=== PATIENT | female | born 1955 | race Caucasian/White ===

== ENCOUNTER 2021-10-16 10:23 | Inpatient (IN) | payer MEDICARE, BC, SELFPAY ==
[2021-10-16] VITALS (10 sets, daily range): BP systolic 130–144; BP diastolic 41–55; PULSE 53–68; RESP 16–20; TEMP 36.4–37.1; O2SAT 96–99; BMI 40.0
--- NOTE | ~2021-10-16 | NM_ITS ---
EXAMINATION: NM pulmonary perfusion DATE: 10/16/2021 14:17 INDICATION: Shortness of breath. TECHNIQUE: 5.5 mCi Tc-99m MAA was administered intravenously for perfusion images. Scintigraphic radha ges of the chest were obtained. COMPARISON: Chest single view 10/16/2021 FINDINGS: Perfusion images show matched moderate sized defects in right lower lobe. There is a matched large de fect in anterior segment right upper lobe. IMPRESSION: 1. Nondiagnostic (intermediate probability for pulmonary embolism). Reviewed, dictated and finalized at location A.
--- NOTE | 2021-10-16 10:38 | ADMGEN ---
This patient, Liliana Mccartney, was admitted to IMU Room 210-01 on 10/16/21 at 1023. Patient/family oriented to hospital policies and general routines including ID bracelet, bed and alarms, visiting hours, pain management, procedures, bathroom and other care routines, personal items, smoking policy, room service/diet, and visiting hours. Information on how to activate the Rapid Response Team has been discussed. Patient/Family are encouraged to report perceived risks to care and to ask questions if they do not understand what they are told or what they should do.
--- NOTE | 2021-10-16 10:39 | ECG_ITS ---
Measurements Intervals [place] Rate: 51 P: 24 NM: 181 QRS: 24 QRSD: 94 T: 45 QT: 526 QTc: 489 Interpretive Statements SINUS BRADYCARDIA PROLONGED QT INTERVAL BORDERLINE ECG NO PREVIOUS ECG AVAILABLE FOR COMPARISON Electronically Signed On 10-16-2021 16:09:33 CDT by Roger Gonzalez M.D.
--- NOTE | 2021-10-16 10:41 | PM.IMHP ---
H&P: HPI History of Present Illness Date/Time: 10/16/21 10:41 Chief Complaint: Shortness of breath Narrative: Patient is 60 for a female who presents to the ED with shortness of breath that started all of sudden last night that woke her up from the sleep. She was also feeling chilly and shivering. She could not catch her breath and hence she drove to the ER for evaluation. She was found to be hypoxic in the ER and was placed on oxygen which measure better. She also got some breathing treatment. She denied any chest pain but she did complain of having some nausea last evening. She Is already feeling better. No abdominal pain or vomiting. Initial troponin was mildly elevated but the repeat 1 went up and hence transfer was requested. Past medical history: mild coronary artery disease catheterization in May 2020 in [place]. History of carotid endarterectomy 2016 Atrial fibrillation on chronic anticoagulation History of ablation for atrial fibrillation Chronic kidney disease stage 3 Type 2 diabetes mellitus is to be on insulin now off since the surgery Past surgical history: Gastric sleeve surgery June 2021 Carotid endarterectomy left 2017 cardiac catheterization Right rotator cuff surgery, Ablation, Achilles tendons surgery Social history: Former smoker quit 8 years ago, no alcohol, no illicit drug use Family history: No family history of premature coronary artery disease Review of Systems Review of Systems: - CONSTITUTIONAL: Denies weight loss, fever and chills. - HEENT: Denies changes in vision and hearing - RESPIRATORY: Reports SOB and cough. - CV: Denies palpitations and CP. Reports left scapular pain - GI: Denies abdominal pain, reports some nausea last evening, no vomiting and diarrhea. - : Denies dysuria and urinary frequency. - MSK: Denies myalgia and joint pain. - SKIN: Denies rash and pruritus. - NEUROLOGICAL: Denies headache and syncope. - PSYCHIATRIC: Denies recent changes in mood. Denies anxiety and depression. [facility] Family History Family History Mother Hx of CABG Hypertension Carotid art occ w/o infarc AAA (abdominal aortic aneurysm) Father Hypotension Diabetes mellitus Peripheral artery disease Meds Home Medications and Allergies Home Medications Medication Instructions Recorded Confirmed Type apixaban 5 mg tablet (Eliquis) 5 mg PO Q12H 10/16/21 10/16/21 History atorvastatin 40 mg tablet 40 mg PO DAILY 10/16/21 10/16/21 History biotin 1 mg capsule 1 mg PO DAILY 10/16/21 10/16/21 History fenofibrate 160 mg tablet 160 mg PO DAILY 10/16/21 10/16/21 History ferrous sulfate 324 mg (65 mg 324 mg PO DAILY 10/16/21 10/16/21 History iron) tablet,delayed release furosemide 20 mg tablet 20 mg PO DAILY 10/16/21 10/16/21 History gabapentin 300 mg capsule 300 mg PO Q12H 10/16/21 10/16/21 History losartan 100 1 tablet PO DAILY 10/16/21 10/16/21 History mg-hydrochlorothiazide 25 mg tablet metoprolol succinate 50 mg 50 mg PO Q12H 10/16/21 10/16/21 History tablet,extended release 24 hr multivitamin with minerals 1 cap PO DAILY 10/16/21 10/16/21 History sotalol 80 mg tablet 80 mg PO Q12H 10/16/21 10/16/21 History trazodone 50 mg tablet 100 mg PO HS PRN Insomnia 10/16/21 10/16/21 History Allergies Allergy/AdvReac Type Severity Reaction Status Date / Time Penicillins Allergy Unknown Unknown Verified 10/16/21 10:57 codeine AdvReac Unknown Jittery Verified 10/16/21 10:57 [From Tylenol-Codeine #3] Contrast Media Allergy Unknown Unknown Uncoded 10/16/21 10:57 HYDROCODONE BIT AdvReac Unknown Jittery Uncoded 08/06/13 11:23 Exam Narrative: GENERAL: The patient is well developed, not in acute distress HEENT: Nonicteric sclerae, PERRLA, EOMI. Oropharynx clear. Moist mucous membranes. Conjunctivae appear well perfused. CHEST: Chest wall is nontender. HEART: Regular rate and rhythm without murmur, rubs, or gallops LUNGS: Clear to auscultation bilat
[2021-10-16 11:20] LABS: Basophils Percent Auto 0.2 % (0.2-1.2); Eosinophils Percent Auto 0.1 % (0-4.4); Hematocrit 32.7 % (37.0-47.0); Hemoglobin 10.5 g/dL (12.0-15.0); Immature Granulocyte Absolute 0.09 K/mm3 (0.00-0.031); Immature Granulocyte Percent A 0.7 % (0-0.5); Lymphocytes Percent Auto 8.2 % (18.3-44.2); Mean Corpuscular HGB Conc 32.1 g/dl (32-36); Mean Corpuscular Hemoglobin 29.7 pg (26-34); Mean Corpuscular Volume 92.4 fl (80-100); Mean Platelet Volume 10.9 fl (7.4-10.4); Monocytes Absolute Auto 0.9 K/mm3 (0.1-0.6); Monocytes Percent Auto 6.4 % (2.6-8.5); Neutrophils Absolute Auto 11.3 K/mm3 (1.3-6.7); Neutrophils Percent Auto 84.4 % (45.5-73.1); Platelet Count Result 138 k/mm3 (150-375); Red Blood Count 3.54 M/mm3 (4.2-5.4); Red Cell Distribution Width 13.1 % (11.5-14.5); White Blood Count 13.4 K/mm3 (4.5-10.0)
[2021-10-16 11:26] LABS: INR 1.2; Prothrombin Time 14.4 Seconds (11.1-14.7)
[2021-10-16 11:27] LABS: Lactic Acid Reflex 1.6 mmol/L (0.7-2.0); Magnesium 1.4 mg/dL (1.6-2.3)
[2021-10-16 11:42] LABS: Troponin I 0.167 ng/mL (0.000-0.034)
--- NOTE | 2021-10-16 11:49 | ECHO_ITS ---
Patient Info Name: Liliana Mccartney Age: 65 years : 1955 Gender: Female Ht: 64 in Wt: 233 lbs BSA: 2.24 m2 HR: 52 bpm BP: 144 / 46 mmHg Heart Rhythm: Sinus Rhythm, Bradycardia Technical Quality: Fair Exam Date: 10/16/2021 3:02 PM Exam Location: [facility] Pulmonary Patient Status: Inpatient Admit Date: 10/16/2021 Staff Ordering Physician: Roger Gonzalez MD Machine Setter Supervisor: Kaela Chris RDCS Attending Provider: Home Alvarado MD Referring Physician: Lisa CARR; Exam Type: CA echo doppler color flow Study Info Indications - elevated troponin I, sob Complete two-dimensional, color flow and Doppler transthoracic echocardiogram is performed. Summary 1. Complete two-dimensional, color flow and Doppler transthoracic echocardiogram is performed. 2. Left ventricular chamber dimension is mildly enlarged. 3. Left ventricular systolic function is normal, estimated at 65-70%. 4. There is mildly increased left ventricular wall thickness. 5. The left ventricular diastolic function is grade II diastolic dysfunction. 6. There is mild aortic valve stenosis with a peak velocity of 246 cm/s, mean gradient of 11 mmHg, and aortic valve area of 1.8 cm2. 7. There is mild mitral valve regurgitation. 8. There is trace tricuspid valve regurgitation. 9. No pulmonary hypertension, estimated pulmonary arterial systolic pressure is 29 mmHg. 10. There is mild to moderate aortic valve regurgitation. Left Ventricle Left ventricular chamber dimension is mildly enlarged. Left ventricular systolic function is normal, estimated at 65-70%. There is mildly increased left ventricular wall thickness. The left ventricular diastolic function is grade II diastolic dysfunction. Right Ventricle Right ventricular chamber dimension is normal. Right ventricular systolic function is normal. Left Atria Left atrial chamber dimension is mildly enlarged. Right Atria Right atrial chamber dimension is normal. Aortic Valve The aortic valve is not well visualized. There is mild aortic valve stenosis with a peak velocity of 246 cm/s, mean gradient of 11 mmHg, and aortic valve area of 1.8 cm2. There is mild to moderate aortic valve regurgitation. There is mild aortic valve calcification. Pulmonic Valve The pulmonic valve is not well visualized. Mitral Valve The mitral valve has normal leaflets. There is mild mitral valve regurgitation. The mitral valve annulus is mildly calcified. Tricuspid Valve The tricuspid valve leaflets are normal. There is trace tricuspid valve regurgitation. No pulmonary hypertension, estimated pulmonary arterial systolic pressure is 29 mmHg. Pericardium/Pleural The pericardium appears normal. There is no pericardial effusion. Inferior Vena Cava Normal inferior vena cava with >50% collapse upon inspiration consistent with normal right atrial pressure, 5 mmHg. Aorta The aortic root size at the sinus of Valsalva is normal. The prox ascending aorta size is normal. There is mild aortic atherosclerosis. Left Ventricular Outflow Tract Name Value Normal LVOT 2D LVOT Diameter 2.0 cm LVOT Doppler
[2021-10-16 11:57] LABS: Hemoglobin A1C 8.7 % (<5.7)
[2021-10-16 12:34] LABS: Hemoglobin A1C 8.7 % (<5.7)
[2021-10-16 12:43] LABS: Glucose Point of Care 188 mg/dl (65-105)
[2021-10-16 12:49] LABS: Alanine Aminotransferase 24 U/L (6-35); Albumin Level 3.9 g/dL (3.5-5.1); Alkaline Phosphatase 64 U/L (38-126); Anion Gap 10 mmol/L (8-16); Aspartate Amino Transferase 33 U/L (14-36); Bilirubin,Total 0.4 mg/dL (0.2-1.3); Blood Urea Nitrogen 39 mg/dL (7-17); Carbon Dioxide 28 mmol/L (22-30); Chloride 98 mmol/L (98-107); Estimated CRCL calculation 46 ml/min; Estimated Glomerular Filt Rate 41; Glucose 223 mg/dL (65-110); Potassium 4.3 mmol/L (3.4-5.0); Sodium 136 mmol/L (137-145)
[2021-10-16] MEDS: DOXYCYCLINE 100 MG/NS 100 ML 100 MG/100 ML BAG IVPB ×2 (13:28→20:41)
[2021-10-16] MEDS: FERROUS SULFATE 324 MG TABLET PO (13:41)
[2021-10-16] MEDS: FENOFIBRATE 160 MG TABLET PO (13:41)
[2021-10-16] MEDS: GABAPENTIN 300 MG CAPSULE PO ×2 (13:42→20:41)
[2021-10-16] MEDS: FUROSEMIDE 20 MG TABLET PO (13:42)
[2021-10-16] MEDS: METOPROLOL SUCCINATE EXT REL 50 MG TABCR PO ×2 (13:42→20:41)
[2021-10-16] MEDS: APIXABAN 5 MG TABLET PO ×2 (13:42→20:41)
[2021-10-16] MEDS: THERAPEUTIC MULTIVITAMINS/MINERALS TAB (*BKC) 1 TABLET PO (13:42)
[2021-10-16] MEDS: ATORVASTATIN 40 MG TABLET PO (13:42)
[2021-10-16 13:47] LABS: Troponin I 0.172 ng/mL (0.000-0.034)
[2021-10-16 14:56] LABS: Appearance Urine Clear (Clear); Bilirubin Urine 1+ (Negative); Blood Urine Negative (Negative); Color Urine Yellow (Yellow); Glucose Urine UA Trace mg/dL (Negative); Ketones Urine Negative (Negative); Leukocyte Esterase Ur Negative LEU/UL (Negative); Nitrate Urine Negative (Negative); Protein Urine 3+ mg/dL (Negative); Specific Grav Ur >= 1.030 (1.001-1.035); Urobilinogen Urine 0.2 mg/dL (<2.0); pH Urine 5.5 (5.0-9.0)
--- NOTE | 2021-10-16 15:00 | PM.CNCAR ---
Assessment and Plan Assessment and plan (1) Elevated troponin: Code(s): R77.8 - Other specified abnormalities of plasma proteins Status: Acute Assessment and Plan: Most likely type 2 infarction not secondary to acute coronary syndrome and/or plaque rupture related to acute hypoxic respiratory failure secondary to pneumonia presentation. She has no symptoms suggestive of angina or acute ischemic ECG changes. Will obtain 2D echocardiogram to document LV size/function, valve pathology, wall motion abnormalities, chamber size and pulmonary pressures. Provided no new acute changes are observed no further workup indicated at this time. (2) CAD (coronary artery disease): Code(s): I25.10 - Atherosclerotic heart disease of [place] coronary artery without angina pectoris Status: Acute Assessment and Plan: Continue supportive care for history of CAD. Continue statin, beta-caleb therapy. Patient was taken off of aspirin by her access consultant as she is on systemic anticoagulation with Eliquis. We discussed the relative risks and benefits of aspirin plus systemic anticoagulation given known/documented CAD in ultimate preference for aspirin 81 mg daily to resume unless bleeding complications otherwise noted. Given mild thrombocytopenia will hold off on addition at this time and monitor trends. (3) QT prolongation: Code(s): R94.31 - Abnormal electrocardiogram [ECG] [EKG] Status: Acute Assessment and Plan: Most likely secondary to sotalol. Noted QT prolongation with QTc of 489. Discussed reduction sotalol to 40 mg twice daily. Will hold sotalol and monitor QT interval and improved will resume a lower dose as tolerated. If bradycardia or significant or persistent may also reduce Toprol XL as appropriate although patient asymptomatic. Repeat ECG in a.m.. (4) Pneumonia: Qualifiers: Pneumonia type: due to unspecified organism Laterality: right Code(s): J18.9 - Pneumonia, unspecified organism Status: Acute Assessment and Plan: Management per primary service. Antibiotics, supportive care and O2 supplementation. Will wean O2 as tolerated. (5) Atrial fibrillation: Qualifiers: Atrial fibrillation type: paroxysmal Qualified Code(s): I48.0 - Paroxysmal atrial fibrillation Code(s): I48.91 - Unspecified atrial fibrillation Status: Acute Assessment and Plan: Maintaining sinus rhythm on sotalol and Toprol XL. Continue Eliquis 5 mg twice daily. CHADS2 Vasc score 4. Systemic anticoagulation advised. Counseled patient at length in this regard. Patient verbalizes understanding and agrees to continue. Monitor for bleeding. We discussed risk for recurrence off antiarrhythmic therapy and particular in setting of acute illness. (6) Hypertension: Code(s): I10 - Essential (primary) hypertension Status: Acute Assessment and Plan: Mildly elevated but overall stable. Continue medical therapy. (7) Type 2 diabetes mellitus: Code(s): E11.9 - Type 2 diabetes mellitus without complications Status: Acute Assessment and Plan: Management per primary service. History of Present Illness History of Present Illness Consult date/time: Date of service: 10/16/21 15:00 Requesting physician: Home Alvarado MD Consult reason: Other (Elevated troponin) Reason For Visit: pneumonia,hypoxia,elevated troponin Narrative: Patient is a very pleasant 65-year-old female with past medical history significant for obesity, CAD, carotid arterial disease status post carotid endarterectomy, paroxysmal atrial fibrillation on sotalol and Eliquis, type 2 diabetes mellitus, chronic kidney disease stage 3 who states she was in her usual state of health when she woke overnight with severe shortness of breath with chills and shivering. Patient states she was unable to catch her breath and presented to the ER for evaluation. She is n
[2021-10-16 15:01] LABS: RBC Urine 0-2 /hpf (0-2); Squamous Epithelial Cell Urine Rare /hpf (Few); WBC Urine 0-3 /hpf
[2021-10-16 15:08] LABS: Add Urine Microscopic? YES
[2021-10-16] MEDS: MAGNESIUM SULF 2 GM/WATER 50ML 2 GM/50 ML BAG IVPB (15:45)
[2021-10-16 16:20] LABS: Glucose Point of Care 222 mg/dl (65-105)
[2021-10-16] MEDS: INSULIN ASPART (*BKC) 100 UNITS/ML SUB-Q (16:56)
[2021-10-16 17:26] LABS: Troponin I 0.171 ng/mL (0.000-0.034)
[2021-10-16 20:26] LABS: Glucose Point of Care 264 mg/dl (65-105)
[2021-10-16] MEDS: traZODone HCL 50 MG TABLET 100 MG PO (20:42)
[2021-10-17] VITALS (7 sets, daily range): BP systolic 138–147; BP diastolic 40–42; PULSE 61–74; RESP 18; TEMP 36.1–36.6; O2SAT 98–99
[2021-10-17 04:50] LABS: Basophils Percent Auto 0.5 % (0.2-1.2); Eosinophils Absolute Auto 0.1 K/mm3 (0-0.3); Eosinophils Percent Auto 1.3 % (0-4.4); Hematocrit 32.9 % (37.0-47.0); Hemoglobin 10.2 g/dL (12.0-15.0); Immature Granulocyte Absolute 0.04 K/mm3 (0.00-0.031); Immature Granulocyte Percent A 0.5 % (0-0.5); Lymphocytes Absolute Auto 1.25 K/mm3 (0.9-3.2); Lymphocytes Percent Auto 14.9 % (18.3-44.2); Mean Corpuscular Hemoglobin 29.9 pg (26-34); Mean Corpuscular Volume 96.5 fl (80-100); Mean Platelet Volume 11.5 fl (7.4-10.4); Monocytes Absolute Auto 0.6 K/mm3 (0.1-0.6); Neutrophils Absolute Auto 6.4 K/mm3 (1.3-6.7); Neutrophils Percent Auto 75.8 % (45.5-73.1); Platelet Count Result 146 k/mm3 (150-375); Red Blood Count 3.41 M/mm3 (4.2-5.4); Red Cell Distribution Width 13.4 % (11.5-14.5); White Blood Count 8.4 K/mm3 (4.5-10.0)
[2021-10-17 05:02] LABS: Alanine Aminotransferase 20 U/L (6-35); Albumin Level 3.9 g/dL (3.5-5.1); Alkaline Phosphatase 59 U/L (38-126); Anion Gap 10 mmol/L (8-16); Aspartate Amino Transferase 30 U/L (14-36); Bilirubin,Total 0.7 mg/dL (0.2-1.3); Blood Urea Nitrogen 39 mg/dL (7-17); Carbon Dioxide 28 mmol/L (22-30); Chloride 99 mmol/L (98-107); Estimated CRCL calculation 45 ml/min; Estimated Glomerular Filt Rate 41; Glucose 237 mg/dL (65-110); Sodium 137 mmol/L (137-145)
--- NOTE | 2021-10-17 08:00 | ECG_ITS ---
Measurements Intervals [place] Rate: 61 P: 65 AL: 171 QRS: 26 QRSD: 105 T: 17 QT: 483 QTc: 488 Interpretive Statements SINUS RHYTHM PROLONGED QT INTERVAL BORDERLINE ECG COMPARED TO ECG 10/16/2021 10:53:20 NO SIGNIFICANT CHANGE Electronically Signed On 10-17-2021 15:15:35 CDT by Roger Gonzalez M.D.
[2021-10-17 08:04] LABS: Glucose Point of Care 285 mg/dl (65-105)
[2021-10-17] MEDS: ATORVASTATIN 40 MG TABLET PO (08:48)
[2021-10-17] MEDS: FERROUS SULFATE 324 MG TABLET PO (08:48)
[2021-10-17] MEDS: FENOFIBRATE 160 MG TABLET PO (08:48)
[2021-10-17] MEDS: DOXYCYCLINE 100 MG/NS 100 ML 100 MG/100 ML BAG IVPB (08:49)
[2021-10-17] MEDS: APIXABAN 5 MG TABLET PO (08:49)
[2021-10-17] MEDS: THERAPEUTIC MULTIVITAMINS/MINERALS TAB (*BKC) 1 TABLET PO (08:49)
[2021-10-17] MEDS: FUROSEMIDE 20 MG TABLET PO (08:49)
[2021-10-17] MEDS: hydroCHLOROthiazide 25 MG TABLET PO (08:49)
[2021-10-17] MEDS: METOPROLOL SUCCINATE EXT REL 50 MG TABCR PO (08:49)
[2021-10-17] MEDS: LOSARTAN POTASSIUM 100 MG TABLET PO (08:49)
[2021-10-17] MEDS: GABAPENTIN 300 MG CAPSULE PO (08:49)
[2021-10-17] MEDS: INSULIN ASPART (*BKC) 100 UNITS/ML SUB-Q (08:51)
--- NOTE | 2021-10-17 09:23 | PM.PNCARD ---
Progress Note: A&P Assessment and Plan (1) Elevated troponin: Code(s): R77.8 - Other specified abnormalities of plasma proteins <Ellen Jason PerezAC hurst - Last Filed: 10/17/21 12:13> Status: Acute <Ellen PowerAC - Last Filed: 10/17/21 12:13> Assessment and Plan: Most likely type 2 infarction not secondary to acute coronary syndrome and/or plaque rupture related to acute hypoxic respiratory failure secondary to pneumonia presentation. She has no symptoms suggestive of angina or acute ischemic ECG changes. Echo showed normal LV systolic function, EF 65 - 70%, grade II diastolic dysfunction. Mild . Normal pulmonary pressures. No further cardiac workup indicated in this regard <AC Medeiros - Last Filed: 10/17/21 12:13> (2) CAD (coronary artery disease): Code(s): I25.10 - Atherosclerotic heart disease of [place] coronary artery without angina pectoris <AC Medeiros - Last Filed: 10/17/21 12:13> Status: Acute <Ellen PerezAC [place] - Last Filed: 10/17/21 12:13> Assessment and Plan: Continue supportive care for history of CAD. Continue statin, beta-caleb therapy. Patient was taken off of aspirin by her fuse spooler as she is on systemic anticoagulation with Eliquis. We discussed the relative risks and benefits of aspirin plus systemic anticoagulation given known/documented CAD in ultimate preference for aspirin 81 mg daily to resume unless bleeding complications otherwise noted. Mild thrombocytopenia, improved today. Will check platelet count as outpatient. <AC Medeiros - Last Filed: 10/17/21 12:13> (3) QT prolongation: Code(s): R94.31 - Abnormal electrocardiogram [ECG] [EKG] <AC Medeiros - Last Filed: 10/17/21 12:13> Status: Acute <AC Medeiros - Last Filed: 10/17/21 12:13> Assessment and Plan: Most likely secondary to sotalol. Noted QT prolongation with QTc of 489. Discussed reduction sotalol to 40 mg twice daily. Sotalol was held yesterday and repeat ECG shows QTc remains prolonged this morning at 488. Discussed continuing to hold sotalol and repeat EKG in one week as outpatient to assess for shortening of QTc at which point sotalol could be restarted at lower dose. Patient is in agreement with plan. <AC Medeiros - Last Filed: 10/17/21 12:13> (4) Pneumonia: Qualifiers: Laterality: right Pneumonia type: due to unspecified organism <AC Medeiros - Last Filed: 10/17/21 12:13> Code(s): J18.9 - Pneumonia, unspecified organism <AC Medeiros - Last Filed: 10/17/21 12:13> Status: Acute <AC Medeiros - Last Filed: 10/17/21 12:13> Assessment and Plan: Management per primary service. Antibiotics, supportive care and O2 supplementation. Will wean O2 as tolerated. <AC Medeiros - Last Filed: 10/17/21 12:13> (5) Atrial fibrillation: Qualifiers: Atrial fibrillation type: paroxysmal Qualified Code(s): I48.0 - Paroxysmal atrial fibrillation <AC Medeiros - Last Filed: 10/17/21 12:13> Code(s): I48.91 - Unspecified atrial fibrillation <CA Medeiros - Last Filed: 10/17/21 12:13> Status: Acute <AC Medeiros - Last Filed: 10/17/21 12:13> Assessment and Plan: Maintaining sinus rhythm on sotalol and Toprol XL. Continue Eliquis 5 mg twice daily. CHADS2 Vasc score 4. Systemic anticoagulation advised. Counseled patient at length in this regard. Patient verbalizes understanding and agrees to continue. Monitor for bleeding. We discussed risk for recurrence off antiarrhythmic therapy and particular in setting of acute illness. <AC Medeiros - Last Filed: 10/17/21 12:13> (6) Hypertension: Code(s): I10 - Essential (primary) hypertension <Ellen Power APN-C - Last Filed: 10/17/21 12:13> Status: Acute <
--- NOTE | 2021-10-17 10:56 | PM.DS ---
DS: Admitting Diagnosis Discharge Date 10/17/2021 Admitting Diagnosis Shortness of breath DS: Discharge Diagnosis Discharge Diagnosis (1) Hypoxia: Code(s): R09.02 - Hypoxemia Status: Acute (2) Pneumonia: Qualifiers: Pneumonia type: due to unspecified organism Laterality: right Code(s): J18.9 - Pneumonia, unspecified organism Status: Acute (3) Elevated troponin: Code(s): R77.8 - Other specified abnormalities of plasma proteins Status: Acute (4) Atrial fibrillation: Qualifiers: Atrial fibrillation type: paroxysmal Qualified Code(s): I48.0 - Paroxysmal atrial fibrillation Code(s): I48.91 - Unspecified atrial fibrillation Status: Acute (5) Type 2 diabetes mellitus: Code(s): E11.9 - Type 2 diabetes mellitus without complications Status: Acute (6) Hypertension: Code(s): I10 - Essential (primary) hypertension Status: Acute (7) Hyperlipidemia: Code(s): E78.5 - Hyperlipidemia, unspecified Status: Acute DS: Summary Hospital Course Hospital Course: # shortness of breath acute onset presenting complaint # acute respiratory failure with hypoxia 89% on arrival to the ER. Placed on 2 L oxygen. Oxygen maintained on current nasal cannula supplementation this was tapered off during the hospital stay and was off by the time of discharge # right pneumonia penicillin allergy started on Levaquin in the [facility] hospital. QTC is prolonged. Switched to ceftriaxone and doxycycline. Blood culture have been obtained in [facility] which remained negative. Blood culture repeat has been negative here as well. Will discharge her on doxycycline course # elevated troponin with upward trend. 94-164. Likely type 2 [place] due to hypoxia and pneumonia. On apixaban. No active chest pain. No EKG changes reported. EKG reviewed. Repeat troponin and follow the trend which remained flat Cardiology consultation. Echocardiogram with normal ejection fraction. Grade 2 diastolic dysfunction. Mild aortic valve stenosis. Mild MR Trace TR no pulmonary hypertension [id number] aortic regurgitation. # prolonged QTC reduced dose of sotalol. However still remained prolonged on repeat EKG. Cardiology advised to stop sotalol at discharge and further evaluation with costumed character. # history of atrial fibrillation status post ablations in the past. On chronic anticoagulation with apixaban # type 2 diabetes mellitus used to be on insulin the past. Now off since gastric sleeve surgery. Will continue SSI. A1c at 8.7. Patient has been off insulin since sleeve surgery. 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 Oropharynx clear. Moist mucous membranes. Conjunctivae appear well perfused. CHEST: Chest wall is nontender. HEART: Regular rate and rhythm without murmur, rubs, or gallops LUNGS: Clear to auscultation bilaterally. no respiratory distress ABDOMEN: Soft, positive bowel sounds, non-tender, no organomegaly. SKIN: No rash, no excessive bruising, petechiae, or purpura. NEUROLOGIC: Cranial nerves II-XII intact, alert and oriented x 3, no gross motor deficits EXTREMITIES: no edema, cyanosis or clubbing DS: Data Data Completed and Pending Completed studies during hospitalization: Exam Type: ? ? CA echo doppler color flow Study Info Indicati
== END 2021-10-17 12:00 | disposition home or self-care (01) | DRG 193 ==
PROVIDERS: Admitting Provider Internal Medicine; Visit Provider Internal Medicine
DX: J18.9 Pneumonia, unspecified organism (principal); J96.01 Acute respiratory failure with hypoxia; I21.A1 Myocardial infarction type 2; Z68.41 Body mass index [BMI] 40.0-44.9, adult; I12.9 Hypertensive chronic kidney disease with stage 1 through stage 4 chronic kidney disease, or unspecified chronic kidney disease; E11.22 Type 2 diabetes mellitus with diabetic chronic kidney disease; N18.30 Chronic kidney disease, stage 3 unspecified; I48.0 Paroxysmal atrial fibrillation; I25.10 Atherosclerotic heart disease of native coronary artery without angina pectoris; E78.5 Hyperlipidemia, unspecified; I73.9 Peripheral vascular disease, unspecified; I35.0 Nonrheumatic aortic (valve) stenosis; R94.31 Abnormal electrocardiogram [ECG] [EKG]; R00.1 Bradycardia, unspecified; T44.7X5A Adverse effect of beta-adrenoreceptor antagonists, initial encounter; D69.6 Thrombocytopenia, unspecified; E66.9 Obesity, unspecified; Z79.01 Long term (current) use of anticoagulants; Z98.84 Bariatric surgery status; Z87.891 Personal history of nicotine dependence
CPT/HCPCS: 36415; 78580; 80053; 81001; 82948; 83036; 83605; 83735; 84484; 85025; 85610; 87040; 87086; 93005; 93306; A9270; A9540; J0696; J1815; J3475

== ENCOUNTER 2022-09-05 12:50 | Outpatient (CLI) | payer MEDICARE, BC, SELFPAY ==
[2022-09-05 13:51] LABS: Estimated Glomerular Filt Rate 38
[2022-09-05 13:58] LABS: Hemoglobin A1C 6.3 % (<5.7)
== END 2022-09-05 12:51 | disposition home or self-care (01) ==
DX: E11.65 Type 2 diabetes mellitus with hyperglycemia (principal)
CPT/HCPCS: 36415; 82565; 83036